=== PATIENT | male | born 1970 | race Caucasian/White ===

== ENCOUNTER 2020-01-24 06:18 | Day surgery (SDC) | payer OTHER ==
[2020-01-20 10:45] VITALS: BMI 31.9
[2020-01-24 07:07] VITALS: TEMP 98.2
--- NOTE | 2020-01-24 07:08 | HP ---
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 He presents today for his first ECT treatment. Recent Events: * none reported PAST MEDICAL HISTORY: Hypertension CVA PAST SURGICAL HISTORY: Gastric sleeve Social History: lives in [place], unemployed, lives with , 13 children Smoking: current every day Alcohol: no Drugs: no Allergies Iodinated Contrast Media Allergy (Severe, Verified 01/24/20 07:02) Difficulty Breathing No Known Drug Allergies Allergy (Verified 01/20/20 10:29) starch Adverse Reaction (Verified 01/20/20 10:29) Family history: mother father a&w HOME MEDICATIONS: Home Medications Medication Instructions Recorded Amiloride HCl 10 mg PO DAILY 01/20/20 Aspirin [Aspirin EC] 81 mg PO DAILY 01/20/20 Gabapentin 400 mg PO BID 01/20/20 Multivitamin [One-Daily 1 tab PO DAILY 01/20/20 Multi-Vitamin] Omeprazole 20 mg PO DAILY 01/20/20 Paroxetine HCl [Paxil Cr] 37.5 mg PO DAILY 01/20/20 clonazePAM [Klonopin -] 0.5 mg PO PRN PRN 01/20/20 REVIEW OF SYSTEMS CONSTITUTIONAL: Absent: fever, chills, diaphoresis, generalized weakness, malaise, loss of appetite, weight change HEENT: Absent: rhinorrhea, nasal congestion, throat pain, throat swelling, difficulty swallowing, mouth swelling, ear pain, eye pain, visual changes CARDIOVASCULAR: Absent: chest pain, syncope, palpitations, irregular heart rate, lightheadedness, peripheral edema RESPIRATORY: Absent: cough, shortness of breath, dyspnea with exertion, orthopnea, wheezing, stridor, hemoptysis GASTROINTESTINAL: Absent: abdominal pain, abdominal distension, nausea, vomiting, diarrhea, constipation, melena, hematochezia GENITOURINARY: Absent: dysuria, frequency, urgency, hesitancy, hematuria, flank pain, genital pain MUSCULOSKELETAL: Absent: myalgia, arthralgia, joint swelling, back pain, neck pain SKIN: Absent: rash, itching, pallor HEMATOLOGIC/IMMUNOLOGIC: Absent: easy bleeding, easy bruising, lymphadenopathy, frequent infections ENDOCRINE: Absent: unexplained weight gain, unexplained weight loss, heat intolerance, cold intolerance NEUROLOGIC: Absent: headache, focal weakness or paresthesias, dizziness, unsteady gait, seizure, mental status changes, bladder or bowel incontinence PHYSICAL EXAMINATION Vital Signs Temperature 98.2 F 01/24/20 07:04 Pulse Rate 66 01/24/20 07:04 Respiratory Rate 18 01/24/20 07:04 Blood Pressure 120/80 01/24/20 07:04 O2 Sat by Pulse Oximetry (%) 96 01/24/20 07:04 GENERAL: Awake, alert, and fully oriented, in no acute distress. HEAD: Normal with no signs of trauma. EYES: Pupils equal, round and reactive to light, sclera anicteric, conjunctiva clear. LUNGS: Breath sounds equal, clear to auscultation bilaterally. No wheezes, and no crackles. No accessory muscle use. HEART: Regular rate and rhythm, normal S1 and S2 ABDOMEN: Soft, nontender, not distended MUSCULOSKELETAL: Normal range of motion at all joints. No bony deformities or tenderness. No CVA tenderness. UPPER EXTREMITIES: 2+ pulses, warm, well-perfused. No cyanosis. No clubbing. No peripheral edema. LOWER EXTREMITIES: 2+ pulses, warm, well-perfused. No calf tenderness. No peripheral edema. NEUROLOGICAL: Cranial nerves II-XII intact. Normal speech. ASSESSMENT/PLAN: 49 year-old male with a PMH significant for hypertension, CVA x 2, and major depressive disorder. Presents today for ECT. Cardiovascular --BP well-controlled on current meds --h/o CVA x 2 six years ago with right-sided deficit --Revised Cardiac Risk Index for Pre-Operative Risk: 1 point, 6.0% risk of major cardiac event Pulmonary --no pulmonary history Neurological --no neurological or neurosurgical history; no history of trauma Anesthesia --no reported problems with anesthesia ECT is a low risk procedure. The relative benefits of the planned procedure outweigh the relative risks for this patient at this time. Visit type - Emergency Visit Emergency Visit: No - New Patient This patient is new to me today: Yes Date on this admission: 01/24/20 - Critical Care Critical Care patient: No
[2020-01-24] MEDS ORDERED: ONDANSETRON 4 MG/2 ML VIAL IVPUSH PRN (07:17)
[2020-01-24] MEDS ORDERED: LACTATED RINGERS SOLUTION 1,000 ML IV SCH (07:30)
[2020-01-24 12:01] VITALS: BP 124/66; PULSE 82
== END 2020-01-24 09:45 | disposition home or self-care (01) ==
LOC: FECT 06:18
PROVIDERS: ATTEND Psychiatry & Neurology Psychiatry
PROC: GZB0ZZZ Electroconvulsive Therapy, Unilateral-Single Seizure (ICD-10-PCS; principal; 2020-01-24 07:30)
DX: F33.9 Major depressive disorder, recurrent, unspecified (principal); I10 Essential (primary) hypertension; I69.351 Hemiplegia and hemiparesis following cerebral infarction affecting right dominant side
CPT/HCPCS: 90870; 94760; U0003

== ENCOUNTER 2020-01-27 06:17 | Day surgery (SDC) | payer OTHER ==
[2020-01-24 17:40] VITALS: BMI 31.9
[2020-01-27] MEDS ORDERED: ONDANSETRON 4 MG/2 ML VIAL IVPUSH PRN (07:01)
[2020-01-27] MEDS ORDERED: LACTATED RINGERS SOLUTION 1,000 ML IV SCH (07:15)
[2020-01-27] MEDS ORDERED: KETAMINE HCL 500 MG/10 ML VIAL ONE (07:22)
[2020-01-27 08:56] VITALS: TEMP 97.8
[2020-01-27 09:08] VITALS: BP 117/86; PULSE 74
== END 2020-01-27 09:14 | disposition home or self-care (01) ==
LOC: FECT 06:17
PROVIDERS: ATTEND Psychiatry & Neurology Psychiatry
PROC: GZB4ZZZ Other Electroconvulsive Therapy (ICD-10-PCS; principal; 2020-01-27 07:30)
DX: F32.9 Major depressive disorder, single episode, unspecified (principal)
CPT/HCPCS: 90870; 94760; U0003

== ENCOUNTER 2020-01-31 06:20 | Day surgery (SDC) | payer OTHER ==
[2020-01-25 16:22] VITALS: BMI 31.9
[2020-01-31] MEDS ORDERED: KETAMINE HCL 500 MG/10 ML VIAL ONE (09:07)
[2020-01-31] MEDS ORDERED: ONDANSETRON 4 MG/2 ML VIAL IVPUSH PRN (10:07)
[2020-01-31] MEDS ORDERED: LACTATED RINGERS SOLUTION 1,000 ML IV SCH (10:15)
[2020-01-31 10:36] VITALS: TEMP 98.7
[2020-01-31 10:37] VITALS: BP 145/90; PULSE 77
== END 2020-01-31 10:25 | disposition home or self-care (01) ==
LOC: FECT 06:20
PROVIDERS: ATTEND Psychiatry & Neurology Psychiatry
PROC: GZB4ZZZ Other Electroconvulsive Therapy (ICD-10-PCS; principal; 2020-01-31 08:30)
DX: F33.2 Major depressive disorder, recurrent severe without psychotic features (principal)
CPT/HCPCS: 90870; 94760; U0003

== ENCOUNTER 2020-02-03 08:03 | Day surgery (SDC) | payer OTHER ==
[2020-01-26 10:20] VITALS: BMI 31.9
[2020-02-03] MEDS ORDERED: SUCCINYLCHOLINE CHLORIDE 200 MG/10 ML SYRINGE ONE (09:21)
[2020-02-03] MEDS ORDERED: PROPOFOL 20 ML ONE (09:21)
[2020-02-03] MEDS ORDERED: KETAMINE HCL 500 MG/10 ML VIAL ONE (09:31)
[2020-02-03] MEDS ORDERED: ONDANSETRON 4 MG/2 ML VIAL ONE (09:37)
[2020-02-03 11:13] VITALS: TEMP 98.2
[2020-02-03 11:15] VITALS: BP 133/89; PULSE 77
== END 2020-02-03 11:10 | disposition home or self-care (01) ==
LOC: FECT 08:03
PROVIDERS: ATTEND Psychiatry & Neurology Psychiatry
PROC: GZB4ZZZ Other Electroconvulsive Therapy (ICD-10-PCS; principal; 2020-02-03 07:30)
DX: F32.9 Major depressive disorder, single episode, unspecified (principal)
CPT/HCPCS: 90870; 94760; U0003

== ENCOUNTER 2020-02-10 05:05 | Day surgery (SDC) | payer OTHER ==
[2020-02-08 08:58] VITALS: BMI 31.9
[2020-02-10] MEDS ORDERED: KETAMINE HCL 200 MG/20 ML VIAL ONE (08:27)
[2020-02-10 09:54] VITALS: BP 135/89; PULSE 75; TEMP 98
== END 2020-02-10 10:00 | disposition home or self-care (01) ==
LOC: JASU-ENDO 05:05
PROVIDERS: ATTEND Psychiatry & Neurology Psychiatry
PROC: GZB4ZZZ Other Electroconvulsive Therapy (ICD-10-PCS; principal; 2020-02-10 07:00)
DX: F33.2 Major depressive disorder, recurrent severe without psychotic features (principal)
CPT/HCPCS: 90870; 94760; U0003

== ENCOUNTER 2020-02-14 06:17 | Day surgery (SDC) | payer OTHER ==
[2020-02-08 09:07] VITALS: BMI 31.9
[2020-02-14 06:54] VITALS: TEMP 98.1
[2020-02-14] MEDS ORDERED: SUCCINYLCHOLINE CHLORIDE 200 MG/10 ML SYRINGE ONE (07:19)
[2020-02-14] MEDS ORDERED: KETAMINE HCL 200 MG/20 ML VIAL ONE (07:19)
[2020-02-14] MEDS ORDERED: PROPOFOL 20 ML ONE (07:19)
[2020-02-14 09:05] VITALS: PULSE 77
[2020-02-14 09:06] VITALS: BP 139/85
== END 2020-02-14 08:50 | disposition home or self-care (01) ==
LOC: FECT 06:17
PROVIDERS: ATTEND Psychiatry & Neurology Psychiatry
PROC: GZB4ZZZ Other Electroconvulsive Therapy (ICD-10-PCS; principal; 2020-02-14 07:00)
DX: F33.2 Major depressive disorder, recurrent severe without psychotic features (principal)
CPT/HCPCS: 90870; 94760; U0003

== ENCOUNTER 2020-02-17 06:22 | Day surgery (SDC) | payer OTHER ==
[2020-02-09 07:34] VITALS: BMI 31.9
[2020-02-17 06:49] VITALS: TEMP 98
[2020-02-17] MEDS ORDERED: KETAMINE HCL 500 MG/10 ML VIAL ONE (07:09)
[2020-02-17] MEDS ORDERED: ONDANSETRON 4 MG/2 ML VIAL ONE (07:09)
[2020-02-17] MEDS ORDERED: KETOROLAC TROMETHAMINE 30 MG/1 ML VIAL ONE (07:09)
[2020-02-17] MEDS ORDERED: SUCCINYLCHOLINE CHLORIDE 200 MG/10 ML SYRINGE ONE (07:09)
[2020-02-17] MEDS ORDERED: PROPOFOL 20 ML ONE (07:09)
[2020-02-17 08:30] VITALS: BP 137/89; PULSE 77
== END 2020-02-17 08:35 | disposition home or self-care (01) ==
LOC: FECT 06:22
PROVIDERS: ATTEND Psychiatry & Neurology Psychiatry
PROC: GZB4ZZZ Other Electroconvulsive Therapy (ICD-10-PCS; principal; 2020-02-17 07:00)
DX: F32.9 Major depressive disorder, single episode, unspecified (principal)
CPT/HCPCS: 90870; 94760; U0003

== ENCOUNTER 2020-02-21 06:41 | Day surgery (SDC) | payer OTHER ==
[2020-02-09 07:39] VITALS: BMI 31.9
[2020-02-21 07:27] VITALS: TEMP 98.1
[2020-02-21] MEDS ORDERED: KETAMINE HCL 500 MG/10 ML VIAL ONE (08:24)
[2020-02-21] MEDS ORDERED: PROPOFOL 20 ML ONE (08:24)
[2020-02-21 09:46] VITALS: BP 137/91; PULSE 88
== END 2020-02-21 10:00 | disposition home or self-care (01) ==
LOC: FECT 06:41
PROVIDERS: ATTEND Psychiatry & Neurology Psychiatry
PROC: GZB4ZZZ Other Electroconvulsive Therapy (ICD-10-PCS; principal; 2020-02-21 07:00)
DX: F33.2 Major depressive disorder, recurrent severe without psychotic features (principal)
CPT/HCPCS: 90870; 94760; U0003

== ENCOUNTER 2020-02-24 06:52 | Day surgery (SDC) | payer OTHER ==
[2020-02-21 14:12] VITALS: BMI 31.9
[2020-02-24] MEDS ORDERED: PROPOFOL 20 ML ONE (07:24)
[2020-02-24] MEDS ORDERED: SUCCINYLCHOLINE CHLORIDE 200 MG/10 ML SYRINGE ONE (07:24)
[2020-02-24 07:33] VITALS: BP 153/83; PULSE 78; TEMP 98.2
== END 2020-02-24 08:00 | disposition home or self-care (01) ==
LOC: FECT 06:52
PROVIDERS: ATTEND Psychiatry & Neurology Psychiatry
PROC: GZB4ZZZ Other Electroconvulsive Therapy (ICD-10-PCS; principal; 2020-02-24)
DX: Z53.09 Procedure and treatment not carried out because of other contraindication (principal); F33.2 Major depressive disorder, recurrent severe without psychotic features